=== PATIENT | male | born 1945 ===

== ENCOUNTER 2016-08-08 14:12 | Emergency (ER) | payer MEDICARE ==
[2016-08-08 14:12] VITALS: BMI 27.0
[2016-08-08 14:21] VITALS: BP 159/83; PULSE 86; RESP 18; TEMP 98.4; O2SAT 99
[2016-08-08 14:51] LABS: BASO # 0.1 K/uL (0.0-0.2); BASO % 1.2 % (0.0-2.0); EOS # 0.1 K/uL (0.0-0.7); HEMATOCRIT 39.5 % (35.0-51.0); MEAN CELL VOLUME 93.3 fl (80.0-94.0); MEAN CORPUSCULAR HEMOGLOBIN 31.8 pg (27.0-31.0); MEAN CORPUSCULAR HGB CONC 34.1 g/dL (33.0-37.0); MONO # 0.7 K/uL (0.0-0.8); MONO % 9.7 % (0.0-10.0); NEUT # 4.3 K/uL (1.8-7.0); NEUT % 59.1 % (50.0-75.0); NRBC % 0.1 % (0.0-0.0); WHITE BLOOD COUNT 7.2 K/uL (4.8-10.8)
[2016-08-08 15:10] LABS: ALB/GLOB RATIO 1.5 (1.0-2.1); ALKALINE PHOSPHATASE 85 U/L (38-126); ALT/SGPT 31 U/L (21-72); AST/SGOT 21 U/L (17-59); BILIRUBIN,TOTAL 0.2 mg/dl (0.2-1.3); BLOOD UREA NITROGEN 12 mg/dl (9-20); CALCIUM 9.6 mg/dL (8.4-10.2); CARBON DIOXIDE 26 mmol/L (22-30); CHLORIDE 103 mmol/L (98-107); GFR AFRICAN-AMERICAN > 60; GLUCOSE,RANDOM 245 mg/dL (75-110); POTASSIUM 4.5 MMOL/L (3.6-5.0); SODIUM 140 mmol/l (132-148); TOTAL PROTEIN 6.9 G/DL (6.3-8.2)
--- NOTE | 2016-08-08 15:18 | ED PDOC ---
HPI: Male Pain Time Seen by Provider: 08/08/16 14:24 Chief Complaint (Nursing): Male Genitourinary Chief Complaint (Provider): Male Genitourinary History Per: Patient History/Exam Limitations: no limitations Onset/Duration Of Symptoms: Hrs Current Symptoms Are (Timing): Still Present Severity: None Quality Of Discomfort: denies: "Pain" Associated Symptoms: Urinary Symptoms. denies: Fever, Nausea Alleviating Factors: None Additional Complaint(s): Patient is a 71 year old male with a history of prostate CA, presents to ED for painless hematuria today. Patient denies back pain, abdominal pain, dysuria or frequency. Notes this has never happened to him before. Of note patient received chemotherapy injections once monthly, last injection Urine sample at bedside, + gross hematuria. Past Medical History Reviewed: Historical Data, Nursing Documentation, Vital Signs Vital Signs: Last Vital Signs Temp 98.4 F 08/08/16 14:18 Pulse 86 08/08/16 14:18 Resp 18 08/08/16 14:18 BP 159/83 H 08/08/16 14:18 Pulse Ox 99 08/08/16 14:18 - Medical History PMH: HTN, Hypercholesterolemia, Mitral Valve Prolapse Denies: Chronic Kidney Disease - Surgical History Surgical History: Endoscopy Denies: Pacemaker - Family History Family History: States: No Known Family Hx - Living Arrangements Living Arrangements: With Family - Home Medications Home Medications: Ambulatory Orders Medication Instructions Recorded Aspirin [Adult Low Dose Aspirin EC] 81 mg PO DAILY 07/17/16 Losartan Potassium 25 mg PO DAILY 07/17/16 MetFORMIN [glucoPHAGE] 1,000 mg PO BID 07/17/16 Ticagrelor [Brilinta] 90 mg PO BID 07/24/16 - Allergies Allergies/Adverse Reactions: Allergies Allergy/AdvReac Type Severity Reaction Status Date / Time No Known Allergies Allergy Verified 07/17/16 10:30 Review of Systems ROS Statement: Except As Marked, All Systems Reviewed And Found Negative Constitutional: Negative for: Fever, Chills Respiratory: Negative for: Shortness of Breath Gastrointestinal: Negative for: Nausea, Vomiting, Abdominal Pain Genitourinary Male: Positive for: Hematuria. Negative for: Dysuria, Frequency, Penile Pain Musculoskeletal: Negative for: Back Pain Physical Exam - Reviewed Nursing Documentation Reviewed: Yes Vital Signs Reviewed: Yes - Physical Exam Appears: Positive for: Non-toxic, No Acute Distress Skin: Positive for: Normal Color, Warm Eye Exam: Positive for: Normal appearance Neck: Positive for: Normal Gastrointestinal/Abdominal: Positive for: Normal Exam. Negative for: Tenderness , Mass, Distended Back: Positive for: Normal Inspection. Negative for: L CVA Tenderness, R CVA Tenderness Extremity: Positive for: Normal ROM Neurologic/Psych: Positive for: Alert, Oriented - Laboratory Results Result Diagrams: 08/08/16 14:46 08/08/16 14:46 - ECG O2 Sat by Pulse Oximetry: 99 (RA) Pulse Ox Interpretation: Normal - Physician Consult Information Time Consulting Physican Contacted: 17:15 Physician Contacted: Ye Cunningham Outcome Of Conversation: If able to void, can follow-up with in office tomorrow @ 12:45 PM. If on blood thinners, discontinue. Medical Decision Making Medical Decision Making: Time: 1424 Initial impression: Painless hematuria Initial plan: -- ABO/RH -- Type and screen -- CMP -- Urine dip -- CBC -- PT/PT -- Urine culture -- U/A 18:[address] King, states pt scheduled for cardiac cath/stent on 08/10/16, if having gross hematuria can discontinue Brilinta and will have to reschedule cardiac cath to a later date. 19:[address] Cunningham again, notified of plan to discontinue Britila. States he will do cystoscope tomorrow and will notify Dr. King of the plan after evaluating patient. Discussed plan and follow-up with patient in detail prior to discharge. Notified that cath on canceled. Scribe Attestation: Documented by Marlene Infante acting as a scribe for Lona Magaña MD MD Scribe Attestation: All medical record entries made by the Scribe were at my direction and personally dictated by me. I have reviewed the chart and agree that the record accurately reflects my personal performance of the history, physical exam, medical decision making, and the department course for this patient. I have also personally directed, reviewed, and agree with the discharge instructions and disposition. Disposition - Clinical Impression Clinical Impression: Gross hematuria - Disposition Referrals: Ye Cunningham MD [Medical Doctor] - Batool King MD [Staff Provider] - Disposition: Routine/Home Disposition Time: 19:03 Condition: STABLE Additional Instructions: DISCONTINUE BRITILA! FOLLOW-UP WITH DR. CUNNINGHAM TOMORROW @ 12:[address] CUNNINGHAM TO CONTACT DR. KING FOR PLAN OF CARE. Instructions: Acute Hematuria (ED) Print Language: BRUNEIAN
[2016-08-08 15:30] LABS: PARTIAL THROMBOPLASTIN TIME 30.1 Seconds (25.6-37.1)
[2016-08-08 15:59] LABS: RBC URINE 10 /hpf (0-3); URINE BACTERIA RARE (<OCC); URINE BILIRUBIN NEGATIVE (NEGATIVE); URINE COLOR YELLOW (YELLOW); URINE GLUCOSE (UA) >=500 mg/dL (Normal); URINE KETONE NEGATIVE (NEGATIVE); URINE LEUKOCYTE ESTERASE NEG Leu/uL (Negative); URINE PROTEIN 100 mg/dL (NEGATIVE); URINE UROBILINOGEN 0.2-1.0 mg/dL (0.2-1.0); WBC URINE < 1 /hpf (0-5)
[2016-08-08 16:00] LABS: URINE BLOOD 2+ (NEGATIVE)
== END 2016-08-08 19:22 | disposition home or self-care (01) ==
LOC: H.ER 14:12
DX: R31.0 Gross hematuria (principal); I10 Essential (primary) hypertension; Z86.79 Personal history of other diseases of the circulatory system

== ENCOUNTER 2016-08-11 09:32 | Day surgery (SDC) | payer MEDICARE ==
[2016-08-10 10:43] VITALS: BMI 26.6
[2016-08-11] MEDS ORDERED: Lactated Ringer's 1,000 ML IV ONE (11:45)
[2016-08-11] MEDS ORDERED: Propofol 10 mg/ml Inj (20 ML) ONE (11:47)
[2016-08-11] MEDS ORDERED: Midazolam 2 MG/2 ML VIAL ONE (11:48)
[2016-08-11] MEDS ORDERED: ePHEDrine 50 mg/ml Inj ONE ×2 (11:49→11:50)
[2016-08-11] MEDS ORDERED: Etomidate 20 mg/10ml Inj IV ONE (11:50)
[2016-08-11] MEDS ORDERED: cefTRIAXone (Rocephin) 1 gm Inj ONE (12:25)
[2016-08-11] MEDS ORDERED: cefTRIAXone (Rocephin) 1 gm Inj IM ONE (12:30)
[2016-08-11] MEDS ORDERED: HYDROmorphone 0.5 mg/0.5 ml ISec IVP PRN (12:44)
[2016-08-11] MEDS ORDERED: Lactated Ringer's 1,000 ML IV SCH (12:44)
[2016-08-11 13:05] VITALS: RESP 18
--- NOTE | 2016-08-11 14:29 | OP ---
PROCEDURE DATE: 08/11/2016 PREOPERATIVE DIAGNOSIS: Gross hematuria. POSTOPERATIVE DIAGNOSIS: Gross hematuria. PROCEDURE PERFORMED: Cystoscopy. The patient was placed on the operating table in a dorsal lithotomy position. General anesthesia was given. At this time, using a #21 cystoscope, I entered into the bladder atraumatically to evaluate the bladder for gross hematuria. At the time of evaluation, there was some hyperemia of the prostati c urethra. Otherwise, there were no active bleeders. The bladder was completely clear. This gross hematuria was secondary to anticoagulant therapy that the patient recently started. Cystoscope was r emoved. The patient then was taken from the operating room in good condition. Ye Miranda MD cc: 48 TT: 08/11/2016 14:28:21 en
[2016-08-11 14:38] VITALS: BP 165/80; PULSE 67; TEMP 97.9; O2SAT 98
--- NOTE | 2016-08-11 22:03 | DS ---
He was admitted for elective cystoscopy for evaluation of gross hematuria. The patient underwent an uneventful procedure. Postoperatively, in recovery, he is doing well. He will be discharged today a nd he will follow up in my office within a week of discharge for further evaluation. Ye Miranda MD cc: 48 TT: 08/11/2016 22:03:06 ln
== END 2016-08-11 14:41 | disposition home or self-care (01) ==
LOC: H.OPSURG 09:32
PROVIDERS: ATTEND Urology
DX: R31.0 Gross hematuria (principal); I25.10 Atherosclerotic heart disease of native coronary artery without angina pectoris; E11.9 Type 2 diabetes mellitus without complications; E78.5 Hyperlipidemia, unspecified; I10 Essential (primary) hypertension
CPT/HCPCS: 52000; 82948; J0696; J2001; J2250; J2704; J3010; J7120

== ENCOUNTER 2017-06-08 09:05 | Emergency (ER) | payer MEDICARE ==
[2017-06-08 09:12] VITALS: O2SAT 100; BMI 26.1
--- NOTE | 2017-06-08 10:56 | ED PDOC ---
HPI: CCC, URI, Sore Throat Time Seen by Provider: 06/08/17 09:50 Chief Complaint (Nursing): ENT Problem Chief Complaint (Provider): ENT Problem History Per: Patient History/Exam Limitations: no limitations Onset/Duration Of Symptoms: Intermittent Episodes (x2) Current Symptoms Are (Timing): Still Present Additional Complaint(s): 71 year old male with medical history of hypertension and CAD, presents to the emergency department with a complaint of right nostril bleeding associated with a large clot seen ongoing intermittently for 2 days. Patient is currently not actively bleeding in ED. He denied any chest pain, nausea, weakness, headache or dizziness. Patient also reported use of Aspirin and Plavix for heat problems PMD: none provided Past Medical History Reviewed: Historical Data, Nursing Documentation, Vital Signs Vital Signs: Last Vital Signs Temp 97.5 F L 06/08/17 09:11 Pulse 95 H 06/08/17 09:11 Resp 20 06/08/17 09:11 BP 137/75 06/08/17 09:11 Pulse Ox 100 06/08/17 11:28 - Medical History PMH: HTN, Hypercholesterolemia, Mitral Valve Prolapse Denies: Chronic Kidney Disease - Surgical History Surgical History: Endoscopy Denies: Pacemaker - Family History Family History: States: Unknown Family Hx - Home Medications Home Medications: Ambulatory Orders Medication Instructions Recorded Aspirin [Adult Low Dose Aspirin EC] 81 mg PO DAILY 07/17/16 Losartan Potassium 25 mg PO DAILY 07/17/16 Bimatoprost [Lumigan 2.5 ml] 1 drop EACHEYE HS 09/29/16 Brimonidine 0.2% [Alphagan 0.2% 1 drop OD TID 09/29/16 Opht] Clopidogrel [Plavix] 75 mg PO DAILY 09/29/16 Sitagliptin Phos/Metformin HCl 1 tab PO BID 09/29/16 [Janumet 50-1,000 mg Tablet] Timolol [Betimol 5 ml] 1 drop OD DAILY 09/29/16 Amoxicillin/Clavulanate [Augmentin 1 tab PO BID #20 tab 06/08/17 875 MG-125 MG] - Allergies Allergies/Adverse Reactions: Allergies Allergy/AdvReac Type Severity Reaction Status Date / Time No Known Allergies Allergy Verified 07/17/16 10:30 Review of Systems ROS Statement: Except As Marked, All Systems Reviewed And Found Negative Constitutional: Negative for: Weakness ENT: Positive for: Nose Discharge (nosebleed from right nare). Negative for: Other (active bleeding) Cardiovascular: Negative for: Chest Pain Gastrointestinal: Negative for: Nausea Neurological: Negative for: Headache, Dizziness Physical Exam - Reviewed Nursing Documentation Reviewed: Yes Vital Signs Reviewed: Yes - Physical Exam Appears: Positive for: Well, Non-toxic, No Acute Distress Head Exam: Positive for: ATRAUMATIC, NORMAL INSPECTION, NORMOCEPHALIC Skin: Positive for: Normal Color, Warm, Dry Eye Exam: Positive for: Normal appearance, EOMI, PERRL ENT: Positive for: Normal ENT Inspection (left nare), Other (large clot on medial wall near septum of right nare without active bleed). Negative for: Pharyngeal Erythema, Tonsillar Swelling (or growth) Neck: Positive for: Normal, Supple Cardiovascular/Chest: Positive for: Regular Rate, Rhythm, Chest Non Tender Respiratory: Positive for: Normal Breath Sounds. Negative for: Decreased Breath Sounds, Wheezing, Respiratory Distress Neurologic/Psych: Positive for: Alert (x3), Oriented - ECG O2 Sat by Pulse Oximetry: 100 (RA) Pulse Ox Interpretation: Normal Medical Decision Making Medical Decision Making: Initial Impression: Epistaxis Time: 1000 --Nosebleed was managed with a Rhino Rocket (See procedure note). Scribe Attestation: Documented by Delmis Rao, acting as a scribe for Cristina Arellano MD. Provider Scribe Attestation: All medical record entries made by the Scribe were at my direction and personally dictated by me. I have reviewed the chart and agree that the record accurately reflects my personal performance of the history, physical exam, medical decision making, and the department course for this patient. I have also personally directed, reviewed, and agree with the discharge instructions and disposition. Procedures - Time-Out Type of Procedure: Nasal packing Site of Procedure: right nare Correct Patient (with visual ID + MR# on ID Band): Yes Correct Procedure: Yes Correct Site Marked: Yes X-Ray Marked: No Medication Reconciliation / Bloodwork / Allergies Checked: Yes Physician Name: Eileen - Additional Procedures Progress: Time: 1000 Nasal packing of right nare --Provider explained the need to pack nose to patient whom provided consent verbally. --4.5cm Rhino Rocket placed in right nare. --4cc of air inflated into rocket. --Patient to be place on observation for any further bleed. --Patient tolerated procedure well. Disposition - Clinical Impression Clinical Impression: Epistaxis - Patient ED Disposition Is Patient to be Admitted: No Doctor Will See Patient In The: Office Counseled Patient/Family Regarding: Diagnosis, Need For Followup, Rx Given - Disposition Referrals: Jame Pearson MD [Staff Provider] - [facility] [place] [Outside] Disposition: Routine/Home Disposition Time: 11:00 Condition: STABLE Prescriptions: Amoxicillin/Clavulanate [Augmentin 875 MG-125 MG] 1 tab PO BID #20 tab Instructions: Nosebleeds Forms: [facility] (Moroccan) Print Language: MOHAWK - POA Present On Arrival: None
[2017-06-08 12:58] VITALS: BP 128/75; PULSE 79; RESP 14; TEMP 98
== END 2017-06-08 12:13 | disposition home or self-care (01) ==
LOC: H.ER 09:05
DX: R04.0 Epistaxis (principal); Z79.02 Long term (current) use of antithrombotics/antiplatelets; I25.10 Atherosclerotic heart disease of native coronary artery without angina pectoris; I10 Essential (primary) hypertension; I34.1 Nonrheumatic mitral (valve) prolapse; Z79.82 Long term (current) use of aspirin